=== PATIENT | male | born 1970 | race Caucasian/White ===

== ENCOUNTER 2019-09-27 05:22 | Inpatient (IN) ==
[2019-09-27] MEDS ORDERED: LR 1,000 ML ONE (05:44)
[2019-09-27] MEDS ORDERED: INVANZ 1 GM/NS 1 GM/50 ML IVPB ONE (05:44)
[2019-09-27] MEDS ORDERED: DIPRIVAN 1% ONE (06:10)
[2019-09-27] MEDS ORDERED: VERSED ONE (06:10)
[2019-09-27] MEDS ORDERED: XYLOCAINE-MPF 2% ONE (06:10)
[2019-09-27] MEDS ORDERED: QUELICIN (DOSE) ONE (06:10)
[2019-09-27] MEDS ORDERED: NORCURON ONE ×2 (06:10→08:12)
[2019-09-27] MEDS ORDERED: SODIUM CHLORIDE 0.9% 10 ML ONE (06:10)
[2019-09-27 06:36] LABS: HEMATOCRIT 38.2 % (42.0-52.0); HEMOGLOBIN 12.5 g/dL (14.0-18.0); MCH 29.9 PG (27-31); MCHC 32.7 g/dL (33-37); MCV 91.4 FL (81-99); MPV 10.4 FL (7.4-10.4); RBC 4.18 XMIL (4.7-6.1); RDW 14.4 % (11.5-14.5); WBC 5.26 X1000 (4.8-10.8)
[2019-09-27] MEDS ORDERED: MORPHINE ONE (06:47)
[2019-09-27 06:50] LABS: AGAP 15; BUN 16 mg/dL (8-22); CALCIUM 9.8 mg/dL (8.8-10.2); CHLORIDE 100 mmol/L (98-107); COSMO 286; CREATININE 1.2 mg/dL (0.7-1.2); ESTIMATED GFR > 60; GLUCOSE 135 mg/dL (70-104); POTASSIUM 4.4 mmol/L (3.5-5.1); SODIUM 142 mmol/L (136-145); TCO2 27 mmol/L (25-35)
[2019-09-27] MEDS ORDERED: DUONEB (A & A) INH ONE (06:53)
[2019-09-27] MEDS ORDERED: EXPAREL 1.3% ONE (06:57)
[2019-09-27] MEDS ORDERED: MARCAINE 0.25% ONE (06:57)
[2019-09-27] MEDS ORDERED: OFIRMEV 1000 MG/ISOTONIC SOLN 1,000 MG/100 ML BOTTLE ONE (07:26)
[2019-09-27] MEDS ORDERED: ZOFRAN ONE (08:11)
[2019-09-27] MEDS ORDERED: DECADRON ONE (08:11)
[2019-09-27 08:56] LABS: URINE SOURCE CATH
[2019-09-27 09:00] LABS: BILIRUBIN URINE NEGATIVE (NEGATIVE); BLOOD URINE NEGATIVE (NEGATIVE); COLOR YELLOW; GLUCOSE URINE NEGATIVE (NEGATIVE); KETONE URINE NEGATIVE (NEGATIVE); LEUKOCYTES URINE NEGATIVE (NEGATIVE); NITRITE URINE NEGATIVE (NEGATIVE); PH URINE 7.5; PROTEIN URINE NEGATIVE (NEGATIVE); SP GRAVITY URINE 1.021; TURBIDITY URINE CLEAR (CLEAR); UROBILINOGEN URINE NORMAL (NORMAL)
[2019-09-27 09:01] LABS: UR EPITHELIAL CELLS <10 /HPF (<10); URINE BACTERIA NEGATIVE /HPF; URINE RBC <10 /HPF (<10); URINE WBC <10 /HPF (<10)
[2019-09-27] MEDS ORDERED: NEOSTIGMINE ONE (09:20)
[2019-09-27] MEDS ORDERED: ROBINUL ONE (09:20)
[2019-09-27] MEDS ORDERED: PRECEDEX ONE (10:03)
[2019-09-27] MEDS: DILAUDID ONE ×4 (10:49→11:27)
--- NOTE | 2019-09-27 11:23 | OPERATIVE NOTE ---
PROCEDURE DATE: 09/27/2019 PREOPERATIVE DIAGNOSIS: Distal rectal cancer. POSTOPERATIVE DIAGNOSIS: Distal rectal cancer. PRINCIPLE PROCEDURE: Abdominoperineal resection. SURGEON: Brooke Dean M.D. FACE BURLER: Dr. Joaquin Burroughs. ANESTHESIA: General. ESTIMATED BLOOD LOSS: 100 mL. DRAINS: A Shiv drain deep in the pelvis. INDICATIONS: Mr. Rudy Perez is a 48-year-old, white male, who presented to our emergency department in April with perianal pain, and exam documented a tumor. He underwent colonoscopy per Dr. Murray. 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 He was seen by Dr. Bailon and underwent preoperative chemo and radiation. He is 6 weeks out, and resection was recommended. FINDINGS: He had a distal tumor just inside the anus, and on exam, I felt it was mostly posterior, involving at least 50% of the circumference of the rectum. We did a clean resection of the distal sigmoid and all of the rectum. We felt we did a total mesorectal excision. We had enough peritoneum to close so that bowel would not fall deep in the pelvis. We brought out a descending end colostomy, left lower quadrant of the abdomen, and it had good blood supply. The perineal incision came together nicely. There was no other evidence of spread of the tumor intra- abdominally or other intra-abdominal pathology. There was no evidence of local advanced disease. We were able to remove the distal rectum nicely along the dissection planes. DESCRIPTION OF PROCEDURE: Dr. Joaquin Burroughs was present throughout the operation. His presence was necessary for retraction and help with dissection of the specimen. He would dissect his side of the distal rectum as I dissected my side. He worked in the abdomen as I worked down in the perineum. He closed the peritoneum for me intra-abdominally. He also matured the colostomy. He also helped close the midline fascia. The patient underwent a bowel prep prior to his presentation. He presented to outpatient surgery, and was taken to the operating room, received general anesthesia, and was intubated. He was marked by our enterostomal nurse, Octavia, for an ostomy prior to surgery. A Damon catheter tube was placed. He was placed in stirrups. His abdomen was prepped and draped within a sterile field. He received IV Invanz. We used an Ioban on the skin. I made a lower midline incision with a 10 blade scalpel, and then the cautery was used to transect the soft tissue in the midline fascia, and we entered the peritoneal cavity. We used a large wound protector for retraction of this lower midline incision. The patient was placed in Trendelenburg. We packed off the bowel. There were no intraabdominal adhesions, and we began our dissection. We chose a place in the distal sigmoid, where we could preserve the inferior mesenteric vessels to the descending colon. We took the superior rectal branches, divided the distal sigmoid colon with a ZOYA stapler, and then began our dissection from proximal to distal. We did use the LigaSure and the cautery. I suture ligated the superior rectal artery and vein using a 2-0 stick tie silk. We got into the plane posteriorly along the coccyx, and dissected posteriorly. We dissected laterally and anteriorly on both sides with the help of a [employer] retractor. Dr. Burroughs would dissect one side, I would dissect the other. He would retract for me so I had good exposure, and I would retract for him for good exposure, and we dissected from proximal down to distal, down to the tip of the coccyx both posteriorly on either pelvic sidewall and anteriorly. We tried to preserve the seminal vesicles and the prostate, and we had a nice plane through there. At this point, I went down to the anus. I marked an elliptical incision, which encompassed the anus and the anal muscles. I made this incision with a 10 blade scalpel, and then the cautery was used in addition to the LigaSure to dissect circumferentially around the anus. I entered the pelvis posteriorly along the coccyx initially. I brought out the specimen, and was able to remove the rest of the pelvic floor under direct vision using the ligature. The specimen was removed. Dr. Joaquin Burroughs was in the abdomen. He closed the peritoneum intra-abdominally, and I closed the perineal wound in multiple layers using 0 Vicryl stitch, and then a 4-0 Monocryl to close the skin. At this point, I went back to the abdomen. We placed a Shiv drain deep in the pelvis. It was brought out through a separate stab incision, right lower quadrant. I secured it to the skin with a 2-0 silk stitch. We created our end colostomy. I used a Ehsan on the skin, previous miah. I excised a 2 cm circumferential piece of skin with the 10 blade scalpel and the cautery. I transected the anterior fascia, bluntly divided the rectus muscle, and then transected some of the posterior fascia, enough where we could get the end descending colon through the anterior abdominal wall. We did use a small wound retractor to help bring this colostomy out. At this point, we removed all laps from the abdomen. We made sure that the bowel was back in its anatomically correct position. We placed the greater omentum over the surface of the bowel, and I closed the lower midline incision in layers. The first layer was a running 0 Vicryl stitch to close the peritoneum. I closed the fascia with a running #1 Maxon stitch. The skin was closed using a skin clip dye house vat worker. At this point, Dr. Burroughs matured the left lower quadrant end colostomy using interrupted 3-0 Vicryl stitches. The end colostomy everted nicely. There was no tension on it. The patient tolerated the procedure well. The nurses dressed our wounds with Xeroform and dry dressing and Medipore tape. The end colostomy was bagged. Damon catheter tube was left in place. We did not use an NG tube. He will go to the recovery room, and then the floor. We felt that the operation went well. cc: MD Lisandro Hyatt MD A. Joseph Alexander, MD
[2019-09-27] MEDS ORDERED: D5 1/2 NS + KCL 20 MEQ 1,000 ML ONE (11:33)
[2019-09-27] MEDS ORDERED: ZOFRAN IV PRN ×3 (13:06→18:45)
[2019-09-27] MEDS ORDERED: D50W SYRINGE IV PRN (13:15)
[2019-09-27] MEDS ORDERED: MS CONTIN PO ONE (13:30)
[2019-09-27] MEDS ORDERED: MORPHINE IR PO ONE (13:30)
[2019-09-27] MEDS: SEROQUEL XR PO SCH ×2 (13:35→22:33)
[2019-09-27] MEDS: D5 1/2 NS + KCL 20 MEQ 1,000 ML IV SCH (13:39)
[2019-09-27] MEDS: DUONEB (A & A) INH SCH ×3 (15:53→23:00)
[2019-09-27] MEDS ORDERED: PHENERGAN IV PRN ×2 (18:00→18:30)
[2019-09-27] MEDS ORDERED: SODIUM CHLORIDE 0.9% INJ PRN ×2 (18:00→18:30)
[2019-09-27] MEDS ORDERED: NARCAN IV PRN (18:30)
[2019-09-27] MEDS ORDERED: LR 1,000 ML IV SCH (18:30)
[2019-09-27] MEDS: DILAUDID PCA VIAL IV PRN (19:59)
[2019-09-27] MEDS: HUMULIN R SUBQ SCH ×2 (20:30→22:35)
[2019-09-27] MEDS: GLUCOPHAGE PO SCH (20:31)
[2019-09-27] MEDS: OFIRMEV 1000 MG/ISOTONIC SOLN 1,000 MG/100 ML BOTTLE IV SCH (20:32)
[2019-09-27] MEDS: PRILOSEC PO SCH (20:33)
[2019-09-27] MEDS ORDERED: AMBIEN PO SCH (21:00)
[2019-09-27] MEDS: MARINOL PO SCH (22:31)
[2019-09-27] MEDS: REMERON PO SCH (22:31)
[2019-09-27] MEDS: KEPPRA PO SCH (22:32)
[2019-09-27] MEDS: ZYPREXA PO SCH (22:32)
[2019-09-28] MEDS: OFIRMEV 1000 MG/ISOTONIC SOLN 1,000 MG/100 ML BOTTLE IV SCH ×3 (00:51→14:27)
[2019-09-28] MEDS: MORPHINE IR PO SCH ×2 (03:28→08:24)
[2019-09-28] MEDS: HUMULIN R SUBQ SCH ×4 (03:29→22:40)
[2019-09-28] MEDS: MS CONTIN PO SCH ×2 (03:29→08:22)
[2019-09-28] MEDS: D5 1/2 NS + KCL 20 MEQ 1,000 ML IV SCH ×3 (03:30→18:51)
[2019-09-28] MEDS: LOVENOX SUBQ SCH (06:19)
[2019-09-28] MEDS: DUONEB (A & A) INH SCH ×5 (07:49→22:35)
[2019-09-28] MEDS: LANTUS INSULIN SUBQ SCH (08:11)
[2019-09-28] MEDS: SEROQUEL XR PO SCH ×2 (08:24→22:41)
[2019-09-28] MEDS: GLUCOPHAGE PO SCH ×2 (08:25→18:13)
[2019-09-28] MEDS: ACTOS PO SCH (08:25)
[2019-09-28] MEDS: CRESTOR PO SCH (08:26)
[2019-09-28] MEDS: PERIDEX MT SCH ×2 (08:26→22:40)
[2019-09-28] MEDS: KEPPRA PO SCH ×2 (08:26→22:41)
[2019-09-28] MEDS: TRILIPIX PO SCH (08:26)
--- NOTE | 2019-09-28 09:24 | PROGRESS NOTE ---
DATE: 09/28/2019 Mr. Rudy Perez is now postop day 1 from an abdominoperineal resection. He has a left-sided end colostomy but has had no significant output. He still has a Shiv drain deep in his pelvis which has some bloody drainage but the volume is acceptable. He has had problems with pain control. He has been on chronic pain medicine. We gave him a Dilaudid pain pump. He will begin Lovenox today. We will stop his lower extremity pneumatic hose. We will get him sitting on the side of the bed or in a chair. We will try to review his p.o. medicines and make his medications simpler. He still has a Damon catheter tube in place because of his abdominoperineal resection. There is no hematuria. His urine output has been good. His heart rate is 93, blood pressure 135/81, O2 saturation 95%. He is afebrile. He remains NPO. cc: Brooke Dean MD
[2019-09-28] MEDS: MARINOL PO SCH ×2 (14:35→22:41)
[2019-09-28] MEDS: PRILOSEC PO SCH (17:05)
[2019-09-28] MEDS: REMERON PO SCH (22:42)
[2019-09-28] MEDS: ZYPREXA PO SCH (22:43)
[2019-09-29] MEDS: HUMULIN R SUBQ SCH ×4 (03:18→22:23)
[2019-09-29] MEDS: LOVENOX SUBQ SCH (06:30)
[2019-09-29] MEDS: D5 1/2 NS + KCL 20 MEQ 1,000 ML IV SCH ×2 (07:46→21:37)
--- NOTE | 2019-09-29 07:53 | PROGRESS NOTE ---
DATE: 09/29/2019 SUBJECTIVE: Mr. Perez is now postop day 2 from an abdominoperineal resection for low rectal cancer. He is awake, seems to be more comfortable. He is on a pain pump. He was on chronic pain medicine. His JOE drain is draining bloody fluid, but the volume is acceptable. He has no NG tube. Damon catheter tube remains. There is no evidence of hematuria. His output is good. He has been NPO. OBJECTIVE: His heart rate is 99, blood pressure is 143/87, O2 saturation 94%. He is afebrile. He is on no antibiotics. He has no output from his left-sided ostomy. His glucose was 141. His lower midline incision seems to be healing well. Perineal incision is still dressed. He is receiving IV maintenance fluid. PLAN: I will leave his pelvic drain for now and also his Damon catheter tube. We will continue to get him up in a chair and we will allow him to start liquids as bowel activity returns. [facility] will cover this weekend. cc: Brooke Dean MD
[2019-09-29] MEDS: DUONEB (A & A) INH SCH ×5 (08:04→23:10)
[2019-09-29] MEDS: KEPPRA PO SCH ×2 (11:14→21:36)
[2019-09-29] MEDS: SEROQUEL XR PO SCH ×2 (11:14→21:36)
[2019-09-29] MEDS: CRESTOR PO SCH (11:14)
[2019-09-29] MEDS: PERIDEX MT SCH ×2 (11:15→21:36)
[2019-09-29] MEDS: GLUCOPHAGE PO SCH ×2 (11:15→17:57)
[2019-09-29] MEDS: ACTOS PO SCH (11:15)
[2019-09-29] MEDS: LANTUS INSULIN SUBQ SCH (11:16)
[2019-09-29] MEDS: TRILIPIX PO SCH (11:16)
[2019-09-29] MEDS: PRILOSEC PO SCH (17:57)
[2019-09-29] MEDS: ZYPREXA PO SCH (21:36)
[2019-09-29] MEDS: REMERON PO SCH (21:36)
[2019-09-30] MEDS: LOVENOX SUBQ SCH (05:27)
[2019-09-30] MEDS: HUMULIN R SUBQ SCH ×3 (06:19→17:21)
[2019-09-30] MEDS: DUONEB (A & A) INH SCH ×5 (07:40→23:26)
[2019-09-30] MEDS: GLUCOPHAGE PO SCH ×2 (09:16→17:20)
[2019-09-30] MEDS: LANTUS INSULIN SUBQ SCH (09:17)
[2019-09-30] MEDS: SEROQUEL XR PO SCH ×2 (09:17→20:47)
[2019-09-30] MEDS: PERIDEX MT SCH ×2 (09:17→20:48)
[2019-09-30] MEDS: ACTOS PO SCH (09:17)
[2019-09-30] MEDS: CRESTOR PO SCH (09:17)
[2019-09-30] MEDS: TRILIPIX PO SCH (09:17)
[2019-09-30] MEDS: KEPPRA PO SCH ×2 (09:17→20:47)
[2019-09-30] MEDS: D5 1/2 NS + KCL 20 MEQ 1,000 ML IV SCH ×2 (11:00→23:36)
--- NOTE | 2019-09-30 11:34 | GENERAL SURGERY PROGRESS NOTE ---
DATE: 09/30/2019 SUBJECTIVE: The patient is doing well postop day 3 abdominal peroneal resection. He is ambulating some with assistance. He is passing gas into his stoma. No nausea or vomiting. OBJECTIVE: Vital Signs: He is afebrile. Vital signs are stable. General: He is awake, alert, oriented x3, in no acute distress. Gastrointestinal: Soft, nondistended, appropriately tender. Incision is clean, dry, intact. JOE drain is bloody, 30 mL recorded. ASSESSMENT AND PLAN: A 49-year-old male postoperative day 3 abdominal peroneal resection. I stripped his JOE drain today. We may remove it tomorrow. We will go ahead and remove his Damon catheter and start him on a clear liquid diet. cc: MD Brooke Esquivel MD
[2019-09-30] MEDS: PRILOSEC PO SCH (17:20)
[2019-09-30] MEDS: REMERON PO SCH (20:47)
[2019-09-30] MEDS: ZYPREXA PO SCH (20:48)
[2019-10-01] MEDS: HUMULIN R SUBQ SCH ×4 (00:07→17:11)
[2019-10-01] MEDS: LOVENOX SUBQ SCH (06:34)
[2019-10-01 06:35] LABS: URINE SOURCE CATH
[2019-10-01 06:38] LABS: BILIRUBIN URINE NEGATIVE (NEGATIVE); BLOOD URINE NEGATIVE (NEGATIVE); COLOR YELLOW; GLUCOSE URINE 70 mg/dL (NEGATIVE); KETONE URINE NEGATIVE (NEGATIVE); LEUKOCYTES URINE NEGATIVE (NEGATIVE); NITRITE URINE NEGATIVE (NEGATIVE); PH URINE 6.5; PROTEIN URINE NEGATIVE (NEGATIVE); SP GRAVITY URINE 1.013; TURBIDITY URINE CLEAR (CLEAR); UR EPITHELIAL CELLS <10 /HPF (<10); URINE BACTERIA NEGATIVE /HPF; URINE RBC <10 /HPF (<10); URINE WBC <10 /HPF (<10); UROBILINOGEN URINE NORMAL (NORMAL)
[2019-10-01] MEDS: DUONEB (A & A) INH SCH ×2 (08:04→12:00)
[2019-10-01] MEDS: SEROQUEL XR PO SCH ×2 (08:10→21:22)
[2019-10-01] MEDS: PERIDEX MT SCH ×2 (08:10→21:22)
[2019-10-01] MEDS: CRESTOR PO SCH (08:11)
[2019-10-01] MEDS: GLUCOPHAGE PO SCH ×2 (08:11→16:22)
[2019-10-01] MEDS: TRILIPIX PO SCH (08:11)
[2019-10-01] MEDS: KEPPRA PO SCH ×2 (08:12→21:22)
[2019-10-01] MEDS: ACTOS PO SCH (08:12)
[2019-10-01] MEDS: LANTUS INSULIN SUBQ SCH (08:13)
--- NOTE | 2019-10-01 08:45 | GENERAL SURGERY PROGRESS NOTE ---
DATE: 10/01/2019 SUBJECTIVE: The patient overall did well yesterday. However, after the Damon catheter was removed, he did not void the rest of the day and had severe lower abdominal pain until his Damon catheter was replaced. Then he dumped out over a liter of urine. He feels much better after that. He is tolerating his liquid diet and passing gas into the stoma. OBJECTIVE: He is afebrile. Vital signs are stable. General: He is awake, alert, and oriented x3. No acute distress. Gastrointestinal: Soft, nondistended. Minimally tender. Incision is clean, dry, intact. JOE drain bloody, 120 mL. ASSESSMENT AND PLAN: A 49-year-old male postoperative day 4, abdominoperineal resection and urinary retention. His Damon catheter has been replaced. We will advance his diet to GI soft and keep his drain in another day. Overall doing well. cc: MD Brooke Esquivel MD
[2019-10-01] MEDS ORDERED: DUONEB (A & A) INH PRN (12:01)
[2019-10-01] MEDS: D5 1/2 NS + KCL 20 MEQ 1,000 ML IV SCH (13:56)
[2019-10-01] MEDS: PRILOSEC PO SCH (16:22)
[2019-10-01] MEDS: ZYPREXA PO SCH (21:22)
[2019-10-01] MEDS: REMERON PO SCH (21:22)
[2019-10-02] MEDS: HUMULIN R SUBQ SCH ×4 (00:34→18:43)
[2019-10-02] MEDS: D5 1/2 NS + KCL 20 MEQ 1,000 ML IV SCH (03:05)
[2019-10-02] MEDS: DILAUDID PCA VIAL IV PRN (03:39)
[2019-10-02] MEDS: LOVENOX SUBQ SCH (07:01)
--- NOTE | 2019-10-02 07:58 | PROGRESS NOTE ---
DATE: 10/02/2019 Mr. Rudy Perez is status post abdominoperineal resection. I feel that his postoperative convalescence has been normal except we have had to use the pain pump. This morning, he is awake. He looks comfortable. I removed his Shiv drain. We did attempt to remove his Damon over the weekend but had to replace it because of urinary retention. His ostomy does have some output. He is supposed to be taught about taking care of his ostomy today per our enterostomal nurse. His wounds are healing well. His heart rate is 83, blood pressure 130/78, O2 saturation 98%. He is afebrile. He is on no antibiotics. We will stop IV medications and switch to p.o. medicines. We will have enterostomal therapy teach them about his bag. I will talk to urology about his urinary retention. We may have social insurance analyst to help him at discharge. cc: Brooke Dean MD
[2019-10-02] MEDS: TRILIPIX PO SCH (09:33)
[2019-10-02] MEDS: CRESTOR PO SCH (09:33)
[2019-10-02] MEDS: ACTOS PO SCH (09:33)
[2019-10-02] MEDS: KEPPRA PO SCH ×2 (09:33→20:40)
[2019-10-02] MEDS: SEROQUEL XR PO SCH ×2 (09:33→20:40)
[2019-10-02] MEDS: PERIDEX MT SCH ×2 (09:34→20:41)
[2019-10-02] MEDS: LANTUS INSULIN SUBQ SCH ×2 (09:34→09:39)
[2019-10-02] MEDS: GLUCOPHAGE PO SCH ×2 (09:34→17:06)
[2019-10-02] MEDS: NORCO-10 PO PRN ×2 (14:51→20:39)
[2019-10-02] MEDS: PRILOSEC PO SCH (17:07)
[2019-10-02] MEDS: REMERON PO SCH (20:39)
[2019-10-02] MEDS: ZYPREXA PO SCH (20:40)
[2019-10-03] MEDS: HUMULIN R SUBQ SCH ×2 (00:29→06:40)
[2019-10-03] MEDS: NORCO-10 PO PRN (02:12)
[2019-10-03] MEDS: LOVENOX SUBQ SCH (06:40)
[2019-10-03 07:21] VITALS: BP 135/86
[2019-10-03] MEDS: PERIDEX MT SCH (08:10)
[2019-10-03] MEDS: ACTOS PO SCH (08:10)
[2019-10-03] MEDS: KEPPRA PO SCH (08:10)
[2019-10-03] MEDS: GLUCOPHAGE PO SCH (08:10)
[2019-10-03] MEDS: CRESTOR PO SCH (08:10)
[2019-10-03] MEDS: SEROQUEL XR PO SCH (08:10)
[2019-10-03] MEDS: TRILIPIX PO SCH (08:10)
[2019-10-03] MEDS: LANTUS INSULIN SUBQ SCH (08:13)
[2019-10-03] MEDS ORDERED: FLOMAX PO ONE (08:56)
--- NOTE | 2019-10-03 09:22 | PROGRESS NOTE ---
DATE: 10/03/2019 SUBJECTIVE: Mr. Rudy Perez is a 49-year-old male who is status post abdominoperineal resection and postoperatively I think he is doing well. He has had some problems with urinary retention and a Damon catheter tube remains. He is on a regular diet. He has had some output from his ostomy. He is being taught ostomy care. I removed his Shiv drain from deep in his pelvis yesterday. OBJECTIVE: His heart rate is 98, blood pressure 135/86, O2 saturation 95%. He is afebrile on no antibiotics. His lower midline incision is healing without problems as is his perineal incision. ASSESSMENT/PLAN: He wants to go home at discharge. I may get home health to evaluate him and help with him at home. He may have to go home with his Damon catheter tube in place. I will speak to Urology about urinary retention. cc: Brooke Dean MD
--- NOTE | 2019-10-03 12:49 | DISCHARGE SUMMARY ---
ADMISSION DATE: 09/27/2019 DISCHARGE DATE: 10/03/2019 ADMITTING DIAGNOSIS: Distal rectal cancer. DISCHARGE DIAGNOSIS: Distal rectal cancer. PRINCIPAL PROCEDURE: Abdominoperineal resection on 09/27/2019. DISCHARGE DISABILITIES: Full . DISCHARGE DISPOSITION: He will return to my outpatient offices this coming Wednesday for recheck and skin clip removal. He will see Dr. Nitesh Madison, our urologist, in his outpatient offices this Wednesday also for removal of his Damon catheter. Dr. Jere Hayes is his primary care physician. Dr. Lisandro Bailon is his medical oncologist. DISCHARGE MEDICATIONS: He is to return to his home medications. I am going to write him a pain medication and also Flomax daily. DISCHARGE DIET: Regular. HOSPITAL COURSE: Mr. Rudy Perez is a 49-year-old white male who was diagnosed with distal rectal cancer. He underwent a colonoscopy as an outpatient per Dr. Murray, which documented this distal rectal cancer which was just inside the rectum. He underwent preoperative chemo and radiation per Dr. Bailon and after 6 weeks completing his therapy, he underwent a bowel prep and presented to surgery on 09/27/2019. He underwent an open abdominoperineal resection with a permanent descending end-colostomy left lower quadrant. We did leave a drain deep in the pelvis at the time of surgery. We felt that the surgery went well. After surgery, he went to the recovery room with a Damon catheter tube in and a drain. We did not use an NG tube. He was hospitalized from the recovery room on the [address] [place] [id number] [place] and his postoperative convalescence has been normal except for urinary retention. We did try to remove his Damon catheter tube on postop day 3, but it had to be replaced and he had 1000 mL in his bladder when it was replaced. We have left the Damon catheter tube in place. We have begun him on Flomax and he will follow up with our urologist this coming Wednesday. At discharge, his heart rate was 83 to 98 blood, pressure 135/86, O2 saturation 95%. He is on no oxygen. He was afebrile. His ostomy was functioning. He had been taught by our inner stomal nurse about bagging his ostomy. His incisions were healing without complication and he was active not only in his room but the hussein. He will be discharged with a Damon catheter tube in place. He knows to contact me with any problems. cc: MD Parminder Hyatt MD Sammy Becdach, MD Roger H. Moss Jr, MD
== END 2019-10-03 12:14 | disposition home health service (06) | DRG 331 ==
LOC: SURHOLD 05:22 → 4N 11:29
PROVIDERS: ADMIT Surgery; ATTEND Surgery